=== PATIENT | female | born 1960 | race Caucasian/White ===

== ENCOUNTER → 2016-10-12 | Outpatient (CLI) | payer OTHER ==
[~2016-10-12] MED LIST: AMBIEN10 M1 PO; AMOXICILLIN500 M2 PO; ANTIVERT/2525 MG PO; ASPIRIN325 MG PO; ATENOLOL100 MG PO; COUGH SYRUP PO; DELTASONE20 M1 PO; FENOFIBRATE160 MG PO; FLAGYL250 MG PO; FLEXERIL10 MG PO; FOSAMAX70 M1 PO; GLUCOPHAGE500 M1 PO; IMDUR60 MG PO; Imdur SA60 MG PO; LASIX20 MG PO; LISINOPRIL10 MG PO; LISINOPRIL20 MG PO; MEDROL DOSEPAK4 MG PO; NEURONTIN800 MG PO; NITROTAB0.4 MG SL; NORVASC5 MG PO; OMEPRAZOLE D/R20 MG PO; OYSTER SHELL C1 EAC3 PO; PAXIL20 MG PO; PLAVIX75 MG PO; PROTONIX TR40 M1 PO; SIMVASTATIN40 MG PO; SULFASALAZINE500 MG PO; TENORMIN50 MG PO; VICODIN 5-3001 EACH PO; VICODIN PO; VICODIN1 TAB PO; VITAMIN D2000 IU PO; Vicodin 5/500 505 MG PO; WELLBUTRIN75 MG PO; XANAX0.25 MG PO; ZANTAC 300300 MG PO; ZETIA10 MG PO; ZOCOR20 MG PO; ZOCOR80 MG PO; ZOFRAN ODT4 MG SL
== END | disposition home or self-care (01) ==
LOC: RAD 16:22
DX: M77.52 Other enthesopathy of left foot and ankle (principal)

== ENCOUNTER → 2016-10-27 | Outpatient (CLI) | payer OTHER | END | disposition home or self-care (01) | LOC: RAD 13:18 | DX: M85.851 Other specified disorders of bone density and structure, right thigh (principal) ==

== ENCOUNTER → 2017-01-03 | Outpatient (CLI) | payer OTHER | END | disposition home or self-care (01) | LOC: MAMMO 12:33 | DX: Z12.31 Encounter for screening mammogram for malignant neoplasm of breast (principal) ==

== ENCOUNTER 2017-12-14 15:42 | Emergency (ER) | payer OTHER ==
[~2017-12-14] VITALS: Wt 70.3 kg
[2017-12-14 17:55] VITALS: BP 151/91
[2017-12-14] MEDS ORDERED: AUGMENTIN 875875 MG PO (17:57)
[2017-12-14] MEDS ORDERED: ALLEGRA-D 24 H1 EACH PO (17:57)
[2017-12-14] MEDS ORDERED: FLONASE ALLERG9.9 ML NAS (17:57)
[2017-12-14] MEDS ORDERED: ZOFRAN ODT4 MG SL (18:27)
== END 2017-12-14 18:33 | disposition home or self-care (01) ==
LOC: ED 15:42
DX: F07.81 Postconcussional syndrome (principal); R51 Headache; R42 Dizziness and giddiness; R11.0 Nausea; R41.0 Disorientation, unspecified; F17.200 Nicotine dependence, unspecified, uncomplicated; Z88.8 Allergy status to other drugs, medicaments and biological substances; Z79.899 Other long term (current) drug therapy; Z79.82 Long term (current) use of aspirin

== ENCOUNTER → 2018-02-08 | Outpatient (CLI) | payer OTHER ==
[~2018-02-08] MED LIST changes: +ALLEGRA-D 24 H1 EACH PO; +AUGMENTIN 875875 MG PO; +FLONASE ALLERG9.9 ML NAS
== END | disposition home or self-care (01) ==
LOC: MAMMO 07:13
DX: Z12.31 Encounter for screening mammogram for malignant neoplasm of breast (principal); R92.1 Mammographic calcification found on diagnostic imaging of breast

== ENCOUNTER → 2019-03-18 | Outpatient (CLI) | payer OTHER | END | disposition home or self-care (01) | LOC: RAD 11:22 | DX: M85.859 Other specified disorders of bone density and structure, unspecified thigh (principal); Z78.0 Asymptomatic menopausal state ==

== ENCOUNTER → 2019-10-28 | Outpatient (CLI) | payer OTHER ==
[2019-10-28 08:46] LABS: MEAN CELL VOLUME 93.7 fl (81.0-99.0); MEAN CORPUSCULAR HGB 29.7 pg (27.0-31.0); MEAN CORPUSCULAR HGB CONC 31.7 g/dl (33.0-37.0); RED BLOOD COUNT 4.91 10*6/uL (4.10-5.10); RED CELL DISTRI WIDTH 12.6 % (0-14.5); WHITE BLOOD COUNT 7.2 10*3/uL (4.8-10.8)
[2019-10-28 09:21] LABS: ALBUMIN 3.9 gm/dl (3.1-4.5); BUN 11 mg/dl (7-24); CHLORIDE 109 mmol/L (98-107); POTASSIUM 4.1 mmol/L (3.5-5.1); SODIUM 142 mmol/L (136-145)
[2019-10-28 09:33] LABS: ALKALINE PHOSPHATASE 55 U/L (45-117); CHOLESTEROL 205 mg/dL (<200); CREATININE 1.04 mg/dL (0.55-1.02); HDL CHOLESTEROL 33 mg/dl (40-60); LDL CHOLESTEROL 92 mg/dL (9-159); SGOT/AST 56 IU/L (3-35); SGPT/ALT 75 U/L (12-78); TOTAL PROTEIN 7.6 gm/dL (6.4-8.2); TRIGLYCERIDES 399 mg/dl (<150); VLDL CHOLESTEROL 80 mg/dL (6-40)
== END | disposition home or self-care (01) ==
LOC: LAB 07:54
PROVIDERS: Physician Assistant
DX: E11.9 Type 2 diabetes mellitus without complications (principal)

== ENCOUNTER → 2019-11-14 | Outpatient (CLI) | payer OTHER | END | disposition home or self-care (01) | LOC: MAMMO 10:06 | DX: S15.002A Unspecified injury of left carotid artery, initial encounter (principal); Z12.31 Encounter for screening mammogram for malignant neoplasm of breast; I25.10 Atherosclerotic heart disease of native coronary artery without angina pectoris; E11.9 Type 2 diabetes mellitus without complications; I10 Essential (primary) hypertension; R41.0 Disorientation, unspecified; X58.XXXA Exposure to other specified factors, initial encounter; Y93.89 Activity, other specified; Y92.89 Other specified places as the place of occurrence of the external cause; Y99.8 Other external cause status ==

== ENCOUNTER → 2020-01-14 | Outpatient (CLI) | payer OTHER | END | disposition home or self-care (01) | LOC: US 11:07 | DX: D25.2 Subserosal leiomyoma of uterus (principal) ==

== ENCOUNTER 2020-03-29 13:38 | Emergency (ER) | payer OTHER ==
[~2020-03-29] VITALS: Ht 152.4 cm; Wt 67.6 kg
[2020-03-29 13:52] VITALS: BP 128/77
[2020-03-29] MEDS ORDERED: Motrin,Rufen800 MG PO (16:56)
== END 2020-03-29 16:51 | disposition home or self-care (01) ==
LOC: ED 13:38
DX: S86.912A Strain of unspecified muscle(s) and tendon(s) at lower leg level, left leg, initial encounter (principal); Z88.6 Allergy status to analgesic agent; Z79.899 Other long term (current) drug therapy; Z79.82 Long term (current) use of aspirin; X58.XXXA Exposure to other specified factors, initial encounter; Y93.89 Activity, other specified; Y92.89 Other specified places as the place of occurrence of the external cause; Y99.8 Other external cause status

== ENCOUNTER → 2020-08-10 | Outpatient (CLI) | payer OTHER ==
[~2020-08-10] MED LIST changes: +Motrin,Rufen800 MG PO
== END | disposition home or self-care (01) ==
LOC: COVID19 13:46
PROVIDERS: ATTEND Physician Assistant
DX: U07.1 COVID-19 (principal); R69 Illness, unspecified

== ENCOUNTER → 2020-11-16 | Outpatient (CLI) | payer OTHER | END | disposition home or self-care (01) | LOC: MAMMO 11-12 09:30 | PROVIDERS: ATTEND Physician Assistant | DX: Z12.31 Encounter for screening mammogram for malignant neoplasm of breast (principal) ==

== ENCOUNTER → 2023-01-17 | Outpatient (CLI) | payer OTHER ==
[2023-01-17 11:55] LABS: HEMATOCRIT 41.4 % (37.0-47.0); MEAN CELL VOLUME 90.4 fl (81.0-99.0); MEAN CORPUSCULAR HGB 30.8 pg (27.0-31.0); MEAN CORPUSCULAR HGB CONC 34.1 g/dl (33.0-37.0); RED BLOOD COUNT 4.58 10*6/uL (4.10-5.10); RED CELL DISTRI WIDTH 12.6 % (0-14.5)
[2023-01-17 12:24] LABS: ALKALINE PHOSPHATASE 55 U/L (46-116); BUN 13 mg/dl (9-23); CHLORIDE 110 mmol/L (98-107); CHOLESTEROL 168 mg/dL (<200); LDL CHOLESTEROL 61 mg/dL (9-159); POTASSIUM 4.3 mmol/L (3.4-5.1); SGPT/ALT 30 U/L (10-49); TRIGLYCERIDES 347 mg/dl (<150)
[2023-01-18 05:06] LABS: HBSAG Negative (Negative); HEP B CORE AB, IGM Negative (Negative); HEPATITIS C ANTIBODY Non Reactive (Non Reactive)
== END | disposition home or self-care (01) ==
LOC: LAB 11:25
PROVIDERS: ATTEND Nurse Practitioner Family
DX: K76.0 Fatty (change of) liver, not elsewhere classified (principal); R53.82 Chronic fatigue, unspecified

== ENCOUNTER → 2023-11-27 | Outpatient (CLI) | payer OTHER | END | disposition home or self-care (01) | LOC: MAMMO 08:13 → CT 09:00 | PROVIDERS: ATTEND Physician Assistant | DX: Z12.31 Encounter for screening mammogram for malignant neoplasm of breast (principal); Z12.2 Encounter for screening for malignant neoplasm of respiratory organs; I25.10 Atherosclerotic heart disease of native coronary artery without angina pectoris; J43.9 Emphysema, unspecified; R91.1 Solitary pulmonary nodule; K76.0 Fatty (change of) liver, not elsewhere classified; F17.210 Nicotine dependence, cigarettes, uncomplicated ==

== ENCOUNTER 2024-02-26 22:33 | Emergency (ER) | payer OTHER ==
[~2024-02-26] VITALS: Ht 152.4 cm; Wt 59.0 kg
[2024-02-26 22:44] VITALS: BP 144/91
[2024-02-26] MEDS ORDERED: TRANEXAMIC ACID 1,000 MG/10 ML VIAL T ONE ×2 (23:00→23:05)
[2024-02-26 23:56] LABS: BASO # 0.1 10*3/uL (0.0-0.1); BASO % 0.9 % (0.0-1.0); EOS # 0.6 10*3/uL (0.0-0.4); EOS % 4.2 % (1.0-4.0); HEMATOCRIT 41.5 % (37.0-47.0); LYMPH # 3.8 10*3/uL (1.3-4.4); LYMPH % 28.5 % (27.0-41.0); MEAN CELL VOLUME 91.2 fl (81.0-99.0); MEAN CORPUSCULAR HGB 29.9 pg (27.0-31.0); MEAN CORPUSCULAR HGB CONC 32.8 g/dl (33.0-37.0); MEAN PLATELET VOLUME 11.6 fl (9.6-12.3); MONO # 1.3 10*3/uL (0.1-1.0); MONO % 9.4 % (3.0-9.0); NEUT # 7.5 10*3/uL (2.3-7.9); NEUT % 56.8 % (47.0-73.0); PLATELET COUNT AUTOMATED 253 10*3/uL (130-400); RED BLOOD COUNT 4.55 10*6/uL (4.10-5.10); RED CELL DISTRI WIDTH 13.2 % (0-14.5); WHITE BLOOD COUNT 13.3 10*3/uL (4.8-10.8)
[2024-02-27 00:15] LABS: BUN 17 mg/dl (9-23); CHLORIDE 105 mmol/L (98-107)
[2024-02-27 00:19] LABS: ACT PARTIAL THROMBO TIME 25.7 SECONDS (20.0-32.1)
== END 2024-02-27 04:21 | disposition home or self-care (01) ==
LOC: ED 22:33
PROVIDERS: Emergency Medicine
DX: L76.22 Postprocedural hemorrhage of skin and subcutaneous tissue following other procedure (principal); I25.10 Atherosclerotic heart disease of native coronary artery without angina pectoris; I25.2 Old myocardial infarction; I10 Essential (primary) hypertension; K21.9 Gastro-esophageal reflux disease without esophagitis; E78.00 Pure hypercholesterolemia, unspecified; F41.9 Anxiety disorder, unspecified; J44.9 Chronic obstructive pulmonary disease, unspecified; E11.9 Type 2 diabetes mellitus without complications; Z88.5 Allergy status to narcotic agent; Z95.5 Presence of coronary angioplasty implant and graft; Z98.890 Other specified postprocedural states; Y83.8 Other surgical procedures as the cause of abnormal reaction of the patient, or of later complication, without mention of misadventure at the time of the procedure

== ENCOUNTER 2025-04-01 17:49 | Emergency (ER) | payer OTHER ==
[~2025-04-01] VITALS: Wt 72.6 kg
[2025-04-01 17:57] VITALS: BP 149/80
== END 2025-04-01 20:27 | disposition home or self-care (01) ==
LOC: ED 17:49
DX: S42.002A Fracture of unspecified part of left clavicle, initial encounter for closed fracture (principal); I25.10 Atherosclerotic heart disease of native coronary artery without angina pectoris; I25.2 Old myocardial infarction; I10 Essential (primary) hypertension; K21.9 Gastro-esophageal reflux disease without esophagitis; F41.9 Anxiety disorder, unspecified; J44.9 Chronic obstructive pulmonary disease, unspecified; E11.9 Type 2 diabetes mellitus without complications; Z88.5 Allergy status to narcotic agent; W19.XXXA Unspecified fall, initial encounter; Y93.89 Activity, other specified; Y92.89 Other specified places as the place of occurrence of the external cause; Y99.8 Other external cause status